=== PATIENT | female | born 1980 | race Caucasian/White ===

== ENCOUNTER 2022-09-20 09:35 | Outpatient (CLI) | payer BC ==
[2022-09-20 10:07] LABS: Bilirubin Neg (Negative); Blood, Urine 150 (Negative); Clarity Clear (Clear); Glucose, Urine (Dipstick) Normal (Negative); Ketone, Urine Negative (Negative); Leukocyte Negative (Negative); Nitrite Negative (Negative); Protein, Urine (Dipstick) Negative (Neg-Trace); Urobilinogen Normal mg/dL (Less than 2); pH, Urine 6.5 (5.0-9.0)
[2022-09-20 10:24] LABS: BHCG - Serum Negative (NEGATIVE); Pregs Control Background? CLEAR/WHITE (CLR/WHITE); Pregs Control Bar Appear? YES (CONTROL BAR)
== END 2022-09-20 09:36 | disposition home or self-care (01) ==
LOC: CSHLAB 09:35
PROVIDERS: ATTEND Obstetrics & Gynecology
DX: Z01.812 Encounter for preprocedural laboratory examination (principal); N93.9 Abnormal uterine and vaginal bleeding, unspecified
CPT/HCPCS: 81003; 84703

== ENCOUNTER 2022-09-25 05:41 | Day surgery (SDC) | payer BC ==
[2022-09-20 14:40] VITALS: BMI 36.6
[2022-09-25] MEDS ORDERED: EPINEPHrine 1 MG/ML AMP ONE (06:26)
[2022-09-25] MEDS ORDERED: Bupivacaine PF 0.5% 30 ML VIAL ONE (06:27)
[2022-09-25] MEDS ORDERED: Methylene Blue 50 MG/10 ML AMPUL ONE (06:27)
[2022-09-25] MEDS ORDERED: Fentanyl 100 MCG/2 ML VIAL ONE ×2 (06:51→09:27)
[2022-09-25] MEDS ORDERED: PROPOFOL 20 ML ONE (06:51)
[2022-09-25] MEDS ORDERED: CEFAZOLIN 2 GM VIAL ONE (06:57)
[2022-09-25] MEDS ORDERED: Midazolam HCl 2 mg/2 ml Vial ONE (07:00)
[2022-09-25] MEDS ORDERED: Famotidine/PF 20 mg/2ml Vial ONE (07:01)
[2022-09-25] MEDS ORDERED: ePHEDrine Sulfate 50 MG/10 ML VIAL ONE (07:37)
[2022-09-25] MEDS ORDERED: Dexamethasone 4 mg/ml Vial ONE (08:25)
[2022-09-25] MEDS ORDERED: Ondansetron PF 4 MG/2 ML Vial ONE (08:25)
[2022-09-25] MEDS ORDERED: Lidocaine 1% PF 5 ML VIAL ONE (08:26)
[2022-09-25] MEDS ORDERED: Rocuronium Bromide 10 MG/ML (10ML VIAL) ONE (08:26)
[2022-09-25] MEDS ORDERED: Ketorolac Tromethamine 30 MG/ML VIAL ONE (08:50)
[2022-09-25] MEDS ORDERED: Glycopyrrolate 0.2 MG/ML 5 ML SYRINGE ONE (08:54)
[2022-09-25] MEDS ORDERED: HYDROcodone/Acetaminophen 7.5/325 mg Tablet ONE (11:01)
[2022-09-25] MEDS ORDERED: Acetaminophen 500 MG TAB ONE (11:24)
[2022-09-25 12:37] LABS: Hemoglobin 12.6 g/dL (12.0-15.5)
[2022-09-25] MEDS ORDERED: Morphine 2 MG/ML VIAL ONE (13:24)
== END 2022-09-25 15:10 | disposition home or self-care (01) ==
LOC: CSHSDC 05:41
PROVIDERS: ATTEND Obstetrics & Gynecology
PROC: 0UT74ZZ Resection of Bilateral Fallopian Tubes, Percutaneous Endoscopic Approach (ICD-10-PCS; principal; 2022-09-25)
PROC: 0UT94ZZ Resection of Uterus, Percutaneous Endoscopic Approach (ICD-10-PCS; principal; 2022-09-25)
DX: N80.03 Adenomyosis of the uterus (principal); N88.8 Other specified noninflammatory disorders of cervix uteri; N83.8 Other noninflammatory disorders of ovary, fallopian tube and broad ligament; N94.5 Secondary dysmenorrhea; N30.90 Cystitis, unspecified without hematuria; E03.9 Hypothyroidism, unspecified; K83.09 Other cholangitis; K21.9 Gastro-esophageal reflux disease without esophagitis; G47.30 Sleep apnea, unspecified; D64.9 Anemia, unspecified; K59.00 Constipation, unspecified; G43.909 Migraine, unspecified, not intractable, without status migrainosus; K31.84 Gastroparesis; I85.00 Esophageal varices without bleeding; Z79.899 Other long term (current) drug therapy; Z90.49 Acquired absence of other specified parts of digestive tract; Z98.890 Other specified postprocedural states
CPT/HCPCS: 85014; 85018; 88307; C1776; J0171; J1100; J1885; J2250; J2272; J2405; J2704; J3010; Q9968; S0020; S0028